=== PATIENT | female | born 1955 | race Caucasian/White ===

== ENCOUNTER 2019-04-23 15:52 | Emergency (ER) | payer BC ==
[~2019-04-23] VITALS: Ht 157.5 cm; Wt 86.4 kg
[2019-04-23 15:52] VITALS: BP 144/77
[2019-04-23] MEDS ORDERED: ASPI81TA21 PO (16:23)
[2019-04-23] MEDS ORDERED: FISH1000 PO (16:23)
[2019-04-23] MEDS ORDERED: ACET-897 PO (16:23)
[2019-04-23] MEDS ORDERED: ATEN25TA PO (16:23)
[2019-04-23] MEDS ORDERED: LORA-674 PO (16:23)
[2019-04-23] MEDS ORDERED: INSUH10VL SC (16:23)
[2019-04-23] MEDS ORDERED: SYMB16INH INH (16:23)
[2019-04-23] MEDS ORDERED: RANI1SYP PO (16:23)
[2019-04-23] MEDS ORDERED: CALC-333 PO (16:23)
[2019-04-23] MEDS ORDERED: GLIP10TA18 PO (16:23)
[2019-04-23] MEDS ORDERED: XELJ11TA PO (16:23)
[2019-04-23] MEDS ORDERED: NAPR220C14 PO (16:23)
[2019-04-23] MEDS ORDERED: TIZA2CAP PO (16:23)
[2019-04-23] MEDS ORDERED: LOSA50TA88 PO (16:23)
[2019-04-23] MEDS ORDERED: COLA100C5 PO (16:23)
[2019-04-23] MEDS ORDERED: INSUDET SC (16:23)
[2019-04-23] MEDS ORDERED: lidocaine patch (16:23)
[2019-04-23] MEDS ORDERED: MEDR4PAK PO (16:38)
== END 2019-04-23 16:45 | disposition home or self-care (01) ==
LOC: M ED 15:52
DX: M51.24 Other intervertebral disc displacement, thoracic region (principal); M54.14 Radiculopathy, thoracic region; I10 Essential (primary) hypertension; J84.9 Interstitial pulmonary disease, unspecified; Z79.899 Other long term (current) drug therapy; Z79.82 Long term (current) use of aspirin; Z79.4 Long term (current) use of insulin; Z88.8 Allergy status to other drugs, medicaments and biological substances; Z87.891 Personal history of nicotine dependence